=== PATIENT | female | born 1965 | race Hispanic/Latino ===

== ENCOUNTER 2023-08-26 06:35 | Day surgery (SDC) | payer BC ==
[2023-08-25 12:44] LABS: BASOPHILS # (AUTO) 0.05 K/uL (0.00-0.20); BASOPHILS % (AUTO) 0.6 % (0.0-5.0); EOSINOPHILS # (AUTO) 0.05 K/uL (0.00-0.70); EOSINOPHILS % (AUTO) 0.6 % (0.0-8.0); HEMATOCRIT 44.5 % (36-48); IMMATURE GRANULOCYTE ABSOLUTE 0.02 K/uL (0-1); LYMPHOCYTES # (AUTO) 2.1 K/uL (1.0-4.8); LYMPHOCYTES % (AUTO) 25.4 % (21.0-51.0); MEAN CORPUSCULAR HEMOGLOBIN 28.5 pg (27.0-33.0); MEAN CORPUSCULAR HGB CONC 32.6 g/dL (32.0-36.0); MEAN CORPUSCULAR VOLUME 87.6 fL (79-99); MONOCYTES # (AUTO) 0.5 K/uL (0.1-1.0); MONOCYTES % (AUTO) 5.8 % (3.0-13.0); NEUTROPHILS # (AUTO) 5.5 K/uL (1.8-7.7); NEUTROPHILS % (AUTO) 67.4 % (40.0-77.0); PLATELET COUNT (AUTO) 267 K/uL (130-400); RED BLOOD CELL COUNT(AUTO) 5.08 MIL/uL (4.00-5.50); RED CELL DISTRIBUTION WIDTH 12.9 % (11.0-15.5); WHITE BLOOD COUNT (AUTO) 8.1 K/uL (4.8-10.8)
[2023-08-25 13:07] VITALS: BP 125/69; PULSE 99; RESP 18
[2023-08-25 13:09] LABS: ALBUMIN 3.9 g/dL (3.5-5.0); BILIRUBIN,DIRECT 0.1 mg/dL (0.0-0.3); BILIRUBIN,TOTAL 0.5 mg/dL (0.2-1.0); CREATININE 0.9 mg/dL (0.5-1.5); THYROID STIMULATING HORMONE 2.13 uIU/mL (0.36-3.74)
[2023-08-26] VITALS (16 sets, daily range): BP systolic 95–111; BP diastolic 51–73; PULSE 62–86; RESP 13–23
[~2023-08-26] VITALS: Ht 152.4 cm; Wt 67.4 kg
[~2023-08-26 06:35] MED LIST: ROSU10TA28 PO; TIRZ5PEN3 SQ
[2023-08-26] MEDS: LACTATED RINGERS 1000ML 1,000 ML IV ONE (07:10)
[2023-08-26] MEDS ORDERED: FAMOTIDINE 20MG VIAL IV ONE (07:42)
[2023-08-26] MEDS ORDERED: PROPOFOL 10 MG/ML 20ML VIAL IV ONE (07:43)
[2023-08-26] MEDS ORDERED: ROCURONIUM BROMIDE 10MG/1ML 5ML VL ONE (07:43)
[2023-08-26] MEDS ORDERED: GLYCOPYRROLATE 0.2 MG/ML 5 ML VIAL ONE (07:43)
[2023-08-26] MEDS ORDERED: LIDOCAINE PF 100MG/5ML (2%) SYRINGE 5ML ONE (07:43)
[2023-08-26] MEDS ORDERED: FENTANYL CITRATE PF 50 MCG/1 ML 2ML VIAL ONE (07:44)
[2023-08-26] MEDS ORDERED: MIDAZOLAM HCL 1 MG/ML 2ML VIAL ONE (07:52)
[2023-08-26] MEDS ORDERED: ONDANSETRON 4MG INJ ONE (08:05)
[2023-08-26] MEDS ORDERED: NEOSTIGMINE METHYLSULFATE 1MG/ML IV ONE (08:22)
[2023-08-26] MEDS ORDERED: KETOROLAC 30MG VIAL (30MG/ML) ONE (08:25)
== END 2023-08-26 10:30 | disposition home or self-care (01) ==
LOC: DAH 06:35
PROVIDERS: ATTEND Obstetrics & Gynecology
DX: N95.0 Postmenopausal bleeding (principal); N84.0 Polyp of corpus uteri; R93.89 Abnormal findings on diagnostic imaging of other specified body structures; Z79.1 Long term (current) use of non-steroidal anti-inflammatories (NSAID); Z82.49 Family history of ischemic heart disease and other diseases of the circulatory system; Z83.3 Family history of diabetes mellitus; Z80.1 Family history of malignant neoplasm of trachea, bronchus and lung; Z81.8 Family history of other mental and behavioral disorders; Z83.42 Family history of familial hypercholesterolemia; Z98.890 Other specified postprocedural states
CPT/HCPCS: 86900; 84443; 80076; 80048; 85025; 86850; 86901; 82670; 83001; 36415; 58558; 88305; A6260; A4663; J7030; A4351; A4355; J7120; J3490 ×3; J3010; J2001; J2250; J2704; J2405; J1885; J2710; A4649; A4215; A4223; A4222; A4221